=== PATIENT | female | born 1975 | race African-American/Black ===

== ENCOUNTER 2017-10-23 12:13 | Emergency (ER) | payer SELFPAY ==
[~2017-10-23] VITALS: Ht 162.6 cm; Wt 61.2 kg
[2017-10-23] MEDS ORDERED: TETRACAINE 0.5% OPHTH SOLUTION 4ML BOTTLE. OD ONE (13:00)
[2017-10-23] MEDS ORDERED: FLUORESCEIN 1MG EYE STRIP. OD ONE (13:00)
--- NOTE | 2017-10-23 13:00 | PHYS DOC ---
Past History Past Medical History: No Pertinent History Past Surgical History: No Surgical History Alcohol Use: Occasionally Drug Use: None Adult General Chief Complaint Chief Complaint: EYE PROBLEMS HPI HPI 42-year-old female presents with right eye pain and redness. The patient states that about 2 hours before she came in, she had sudden onset of discomfort in the right eye. She thought she might have something in there, but it has not improved despite significant tearing. She was not doing anything except sitting on the couch at the time. She wasn't working with any materials or cleaning. When she woke up this morning, her eye appeared normal. It is quite erythematous with yellowish discharge at this time. She denies any other symptoms or concerns. Review of Systems Review of Systems Constitutional: Denies fever or chills [] Eyes: right eye pain, redness[] HENT: Denies nasal congestion or sore throat [] Respiratory: Denies cough or shortness of breath [] Cardiovascular: No additional information not addressed in HPI [] GI: Denies abdominal pain, nausea, vomiting, bloody stools or diarrhea [] : Denies dysuria or hematuria [] Musculoskeletal: Denies back pain or joint pain [] Integument: Denies rash or skin lesions [] Neurologic: Denies headache, focal weakness or sensory changes [] Endocrine: Denies polyuria or polydipsia [] All other systems were reviewed and found to be within normal limits, except as documented in this note. Current Medications Current Medications Current Medications Medications (Trade) Dose Ordered Sig/[facility] Start Time Stop Time Status Last Admin Dose Admin Fluorescein Sodium (Ful-Noemy 1mg) 1 strip 1X ONCE 10/23/17 13:00 10/23/17 13:01 Tetracaine HCl (Tetracaine) 1 drop 1X ONCE 10/23/17 13:00 10/23/17 13:01 Allergies Allergies Allergies Coded Allergies Type Severity Reaction Last Updated Verified No Known Drug Allergies 10/23/17 No Physical Exam Physical Exam Constitutional: Well developed, well nourished, no acute distress, non-toxic appearance. [] HENT: Normocephalic, atraumatic, bilateral external ears normal, oropharynx moist, no oral exudates, nose normal. [] Eyes: PERRLA, EOMI. Right eye conjunctiva erythematous, purulent discharge on the same side. Left eye normal. Dilation with fluorescein and Wood's lamp did not reveal a corneal abrasion or unusual uptake.[] Neck: Normal range of motion, no tenderness, supple, no stridor. [] Cardiovascular:Heart rate regular rhythm, no murmur [] Lungs & Thorax: Bilateral breath sounds clear to auscultation [] Abdomen: Bowel sounds normal, soft, no tenderness, no masses, no pulsatile masses. [] Skin: Warm, dry, no erythema, no rash. [] Back: No tenderness, no CVA tenderness. [] Extremities: No tenderness, no cyanosis, no clubbing, ROM intact, no edema. [] Neurologic: Alert and oriented X 3, normal motor function, normal sensory function, no focal deficits noted. [] Psychologic: Affect normal, judgement normal, mood normal. [] Current Patient Data Vital Signs Vital Signs Date Time Temp Pulse Resp B/P (MAP) Pulse Ox O2 Delivery O2 Flow Rate FiO2 10/23/17 12:25 98.8 58 16 99 Room Air EKG EKG [] Radiology/Procedures Radiology/Procedures [] Course & Med Decision Making Course & Med Decision Making Pertinent Labs and Imaging studies reviewed. (See chart for details) I do not see a corneal abrasion or foreign body. Given the erythema and what appears to be purulent drainage, I will cover the patient with with Erythromycin ointment. [] Dragon Disclaimer Dragon Disclaimer This electronic medical record was generated, in whole or in part, using a voice recognition dictation system. Departure Departure: Referrals: PCP,NO (PCP) LUIS HIGUERA DO Oct 23, 2017 13:00
[2017-10-23] MEDS ORDERED: ERYT1OIN6 OP (13:03)
[2017-10-23 13:25] VITALS: BP 163/107
== END 2017-10-23 13:05 | disposition home or self-care (01) ==
LOC: ER 12:13
DX: H57.11 Ocular pain, right eye (principal); H57.8 Other specified disorders of eye and adnexa
CPT/HCPCS: 99283

== ENCOUNTER 2018-11-15 12:34 | Emergency (ER) | payer SELFPAY ==
[~2018-11-15] VITALS: Ht 162.6 cm; Wt 69.9 kg
[~2018-11-15 12:34] MED LIST: ERYT1OIN6 OP
[2018-11-15 12:53] VITALS: BP 163/96
[2018-11-15] MEDS ORDERED: IV NORMAL SALINE 1,000ML 1,000 ML IV ONE (13:15)
--- NOTE | 2018-11-15 13:26 | PHYS DOC ---
Past History Past Medical History: Hypertension, Pancreatitis Past Surgical History: Appendectomy Alcohol Use: Heavy Drug Use: None Adult General Chief Complaint Chief Complaint: ABDOMINAL PAIN HPI HPI 43-year-old female presents with epigastric pain for the last 4 days. The patient drinks "too much alcohol" 4 days ago because she was feeling overly stressed from her job. The patient is a daily drinker, drinking at least 2-3 units every day. She presents today because the epigastric pain is not feeding. She has had pancreatitis multiple times. Her most recent was about 3 years ago, when she decreased the amount of drinking. Patient denies fever or chills. She has had nausea but no vomiting. Review of Systems Review of Systems Constitutional: Denies fever or chills [] Eyes: Denies change in visual acuity, redness, or eye pain [] HENT: Denies nasal congestion or sore throat [] Respiratory: Denies cough or shortness of breath [] Cardiovascular: No additional information not addressed in HPI [] GI: Epigastric abdominal pain, nausea. Denies vomiting, bloody stools or diarrhea [] : Denies dysuria or hematuria [] Musculoskeletal: Denies back pain or joint pain [] Integument: Denies rash or skin lesions [] Neurologic: Denies headache, focal weakness or sensory changes [] Endocrine: Denies polyuria or polydipsia [] All other systems were reviewed and found to be within normal limits, except as documented in this note. Current Medications Current Medications Current Medications Medications (Trade) Dose Ordered Sig/Johann Start Time Stop Time Status Last Admin Dose Admin Sodium Chloride 1,000 ml @ 1,000 mls/hr 1X ONCE 11/15/18 13:15 11/15/18 14:14 Allergies Allergies Allergies Coded Allergies Type Severity Reaction Last Updated Verified No Known Drug Allergies 10/23/17 No Physical Exam Physical Exam Constitutional: Well developed, well nourished, no acute distress, non-toxic appearance. [] HENT: Normocephalic, atraumatic, bilateral external ears normal, oropharynx moist, no oral exudates, nose normal. [] Eyes: PERRLA, EOMI, conjunctiva normal, no discharge. [] Neck: Normal range of motion, no tenderness, supple, no stridor. [] Cardiovascular:Heart rate regular rhythm, no murmur [] Lungs & Thorax: Bilateral breath sounds clear to auscultation [] Abdomen: Bowel sounds normal, soft, moderate epigastric tenderness, no masses, no pulsatile masses. [] Skin: Warm, dry, no erythema, no rash. [] Back: No tenderness, no CVA tenderness. [] Extremities: No tenderness, no cyanosis, no clubbing, ROM intact, no edema. [] Neurologic: Alert and oriented X 3, normal motor function, normal sensory function, no focal deficits noted. [] Psychologic: Affect normal, judgement normal, mood anxious. [] Current Patient Data Vital Signs Vital Signs Date Time Temp Pulse Resp B/P (MAP) Pulse Ox O2 Delivery O2 Flow Rate FiO2 11/15/18 12:53 98.6 76 19 100 Room Air EKG EKG [] Radiology/Procedures Radiology/Procedures [] Course & Med Decision Making Course & Med Decision Making Pertinent Labs and Imaging studies reviewed. (See chart for details) The patient's labs are unremarkable. She does not appear to have pancreatitis. We tried a GI cocktail which improved the patient's pain by about 50%. This makes me suspicious for GERD. We'll treat her with 20 of Pepcid and 40 of Protonix in the ED. I also discharge her on a 14 day prescription for Protonix to see if this improves her symptoms. She is stable for discharge at this time. [] Dragon Disclaimer Dragon Disclaimer This electronic medical record was generated, in whole or in part, using a voice recognition dictation system. Departure Departure: Impression: Primary Impression: GERD (gastroesophageal reflux disease) Additional Impression: Epigastric abdominal pain Disposition: 01 HOME, SELF-CARE Condition: STABLE Referrals: PCP,NO (PCP) Patient Instructions: Gastroesophageal Reflux Disease, Adult, [id number] Scripts Pantoprazole Sodium (PROTONIX) 40 Mg Tablet. 1 TAB PO DAILY for GERD for 14 Days, #14 TAB 0 Refills Prov: LUIS HIGUERA DO 11/15/18 Problem Qualifiers Primary Impression: GERD (gastroesophageal reflux disease) Esophagitis presence: without esophagitis Qualified Codes: K21.9 - Gastro- esophageal reflux disease without esophagitis LUIS HIGUERA DO Nov 15, 2018 13:26
[2018-11-15 14:00] LABS: ALBUMIN 4.2 g/dL (3.4-5.0); CALCIUM 10.1 mg/dL (8.5-10.1); CREATININE 0.7 mg/dL (0.6-1.0); POTASSIUM 4.5 mmol/L (3.5-5.1); TOTAL BILIRUBIN 0.6 mg/dL (0.2-1.0); TOTAL PROTEIN 8.6 g/dL (6.4-8.2)
[2018-11-15 14:01] LABS: BASO % 1 % (0-3); EOS # 0.1 x10^3/uL (0.0-0.7); EOS % 1 % (0-3); HEMOGLOBIN 15.1 g/dL (12.0-15.5); LYMPH # 2.3 x10^3/uL (1.0-4.8); LYMPH % 26 % (24-48); MEAN CORPUSCULAR HEMOGLOBIN 32 pg (25-35); MEAN CORPUSCULAR HGB CONC 34 g/dL (31-37); MEAN CORPUSCULAR VOLUME 95 fL (79-100); MONO # 0.7 x10^3/uL (0.0-1.1); MONO % 8 % (0-9); NEUT # 5.6 x10^3uL (1.8-7.7); NEUT % 64 % (31-73); PLATELET COUNT 263 x10^3/uL (140-400); RED BLOOD COUNT 4.76 x10^6/uL (3.50-5.40); RED CELL DISTRIBUTION WIDTH 14.3 % (11.5-14.5); WHITE BLOOD COUNT 8.7 x10^3/uL (4.0-11.0)
[2018-11-15] MEDS ORDERED: LIDO:MAALOX 1:1 20 ML SINGLE DOSE. PO ONE (14:30)
[2018-11-15] MEDS ORDERED: PANT40TA3 PO (15:00)
[2018-11-15] MEDS ORDERED: FAMOTIDINE 20 MG/2 ML VIAL IVP ONE (15:00)
[2018-11-15] MEDS ORDERED: PANTOPRAZOLE IV 40 MG VIAL. IVP ONE (15:00)
== END 2018-11-15 15:21 | disposition home or self-care (01) ==
LOC: ER 12:34
DX: K21.9 Gastro-esophageal reflux disease without esophagitis (principal); I10 Essential (primary) hypertension; F10.20 Alcohol dependence, uncomplicated; Z90.89 Acquired absence of other organs
CPT/HCPCS: 36415; 80053; 83690; 85025; 96374; 96375; 99284; C9113; J3490; J7030

== ENCOUNTER 2021-02-05 11:49 | Inpatient (IN) | payer SELFPAY ==
[~2021-02-05] VITALS: Ht 162.6 cm; Wt 64.2 kg
[~2021-02-05 11:49] MED LIST changes: +PANT40TA3 PO
[2021-02-05] MEDS ORDERED: IV NORMAL SALINE 1,000ML 1,000 ML IV ONE ×2 (12:15→14:15)
[2021-02-05] MEDS ORDERED: MORPHINE SULFATE 4 MG/ML DISP.SYRIN. IV ONE ×2 (12:15→13:00)
[2021-02-05] MEDS ORDERED: ONDANSETRON PF 4 MG/2 ML VIAL. IVP ONE (12:15)
--- NOTE | 2021-02-05 12:23 | PHYS DOC ---
Past History Past Medical History: Hypertension, Pancreatitis Past Surgical History: Appendectomy Alcohol Use: Sober Additional Alcohol Information: 1/2 beer daily Drug Use: None General Adult EDM: Chief Complaint: ABDOMINAL PAIN HPI: HPI: Patient is a 39 year old female with past medical history of alcoholism and pancreatitis who presents with upper abdominal pain radiating to the back. Started at 3 AM. Sharp. Has had poor appetite and persistent nausea/vomiting. Feels similar to previous pancreatitis episodes. Last episode of pancreatitis was 5 years ago per patient report. At that time she was drinking heavily with large amounts of alexei daily. She states currently has only been drinking half a beer per day. She denies any recent uptake in alcohol use. Denies other drug use. Denies other medical problems. Denies history of surgical interventions. She denies history of gallstones. Not currently on medications. She has vomited several times this morning. No blood or black material in the vomit. She has had some diarrhea this morning as well. No blood or melena. Review of Systems: Review of Systems: Constitutional: Denies fever. Reports chills Eyes: Denies change in visual acuity HENT: Denies nasal congestion or sore throat Respiratory: Denies cough or shortness of breath Cardiovascular: Denies chest pain or edema GI: Reports abdominal pain, loss of appetite, nausea/vomiting, and diarrhea. : Denies dysuria Musculoskeletal: Denies back pain or joint pain Integument: Denies rash Neurologic: Denies headache, focal weakness or sensory changes Endocrine: Denies polyuria or polydipsia Lymphatic: Denies swollen glands Psychiatric: Denies depression or anxiety Allergies: Allergies: Allergies Coded Allergies Type Severity Reaction Last Updated Verified No Known Drug Allergies 02/05/21 No Physical Exam: PE: Constitutional: Appears acutely uncomfortable. Tearful. Clutching abdomen. Laying in right lateral recumbent position. [] HENT: Normocephalic, atraumatic, Eyes: Tearful, conjunctiva normal. [] Cardiovascular:Heart rate regular rhythm, no murmur [] Lungs & Thorax: Bilateral breath sounds clear to auscultation [] Abdomen: Diffuse abdominal tenderness worse in the epigastrium. Guarding present. [] Skin: Warm, dry, no erythema, no rash. [] Back: No tenderness, no CVA tenderness. [] Extremities: No tenderness, no cyanosis, no clubbing, ROM intact, no edema. [] Neurologic: Alert and oriented X 3, normal motor function, normal sensory function, no focal deficits noted. [] Psychologic: Affect normal, judgement normal, mood normal. [] Current Patient Data: Vital Signs: Vital Signs Date Time Temp Pulse Resp B/P (MAP) Pulse Ox O2 Delivery O2 Flow Rate FiO2 02/05/21 12:01 98.6 96 31 183/84 (117) 99 Room Air EKG: EKG: [] Radiology/Procedures: Radiology/Procedures: [] Impressions: [address] [address] IMAGING REPORT Signed PATIENT: BRYNN BROWN MACCOUNT: [id number] : 1975 LOCATION: ER AGE: 45 SEX: F EXAM STATUS: PRE ER ORD. PHYSICIAN: RUFUS HART MD REASON: epigastric pain radiating to back -75mls omni 300 PROCEDURE: CT ABD PELV W/ IV CONTRST ONLY CT ABDOMEN+PELVIS W History: epigastric pain radiating to back Comparison: None. Technique: After administration of intravenous contrast, helical CT of the abdomen and pelvis was performed from the lung bases through the ischial tuberosities. Coronal and sagittal reconstructions were obtained. 75 mL of Omnipaque 300 were used. One or more of the following dose reduction techniques were utilized: Automated exposure control (AEC), Adjustment of mA and/or kV according to patient size, Use of iterative reconstruction technique such as ASiR, CT scan done according to ALARA and image gently/image wisely Abdomen Findings: The visualized lung bases are clear. Mild haziness around the uncinate process of pancreas with some nonspecific free fluid in the right upper quadrant abdomen. Diffuse hepatic steatosis. Gall bladder, spleen, and bilateral adrenal glands are normal. Symmetric renal enhancement. Left pelvic kidney. There is no hydronephrosis. The visualized loops of small bowel are normal. The visualized loops of large bowel are normal. There is no evidence of bowel obstruction. Appendix is normal. There is no free fluid. There is no mesenteric or retroperitoneal adenopathy. The abdominal aorta is normal in caliber. Pelvis Findings: Urinary bladder is decompressed. Enlarged myomatous and retrocaval uterus No pelvic free fluid. There is no pelvic or inguinal adenopathy. There is no acute bony abnormality. IMPRESSION: 1. Mild haziness around the uncinate process of pancreas with some nonspecific free fluid in the right upper quadrant abdomen, which may represent p ancreatitis. Correlate with laboratory values. 2. Diffuse hepatic steatosis. 3. Enlarged myomatous uterus. Electronically signed by: Emiliano Funk MD (02/05/2021 1:26 PM) [facility] DICTATED AND SIGNED BY: EMILIANO FUNK MD DATE: 02/05/21 9416 CC: RUFUS HART MD; PCP,NO ~MTH0 0 Heart Score: C/O Chest Pain: No Risk Factors: Risk Factors: DM, Current or recent (<one month) smoker, HTN, HLP, family history of CAD, obesity. Risk Scores: Score 0 - 3: 2.5% MACE over next 6 weeks - Discharge Home Score 4 - 6: 20.3% MACE over next 6 weeks - Admit for Clinical Observation Score 7 - 10: 72.7% MACE over next 6 weeks - Early Invasive Strategies Course & Med Decision Making: Course & Med Decision Making Pertinent Labs and Imaging studies reviewed. (See chart for details) Patient 45-year-old female with history of alcoholism and previous episodes of pancreatitis who presents with epigastric pain radiating to the back associated with nausea/vomiting. History and exam consistent with pancreatitis. She denies any recent large alcohol use, but continues to drink "1/2 a beer a day. " We will check labs including CBC, CMP, lipase. We will provide with analgesia, antiemetics, and IV fluids. Most likely alcohol related, but since we do not have surgical capability. Will obtain CT imaging to exclude gallstones or complications of pancreatitis that may require surgical intervention. 1222 Lipase 350. LFTs otherwise normal. Cell counts normal. CT shows inflammation of the pancreas consistent with pancr eatitis. She does meet Pancreatitis diagnostic criteria with characteristic pain and CT evidence of acute pancreatitis. She has been unable to tolerate p.o. and has required multiple doses of pain medication in the ED. Feel she will require admission for pain control and IV hydration. 134[address] Alexander Disclaimer: Alexander Disclaimer: This electronic medical record was generated, in whole or in part, using a voice recognition dictation system. Departure Departure: Impression: Primary Impression: Pancreatitis Disposition: HOME / SELF CARE / HOMELESS Admitting Physician: Donaldo Keane Condition: STABLE Referrals: PCPANDRZEJ (PCP) RUFUS HART MD Feb 05, 2021 12:23
[2021-02-05] MEDS ORDERED: CONTRAST GIVEN. MC PRN (12:30)
[2021-02-05] MEDS ORDERED: IOHEXOL 300 MG/ML 75 ML VIAL. IV ONE (12:30)
[2021-02-05 12:52] LABS: BASO # 0.1 x10^3/uL (0.0-0.2); BASO % 1 % (0-3); EOS % 0 % (0-3); HEMATOCRIT 40.5 % (36.0-47.0); HEMOGLOBIN 13.7 g/dL (12.0-15.5); LYMPH # 1.8 x10^3/uL (1.0-4.8); LYMPH % 18 % (24-48); MEAN CORPUSCULAR HEMOGLOBIN 34 pg (25-35); MEAN CORPUSCULAR HGB CONC 34 g/dL (31-37); MEAN CORPUSCULAR VOLUME 99 fL (79-100); MONO # 0.5 x10^3/uL (0.0-1.1); MONO % 6 % (0-9); NEUT # 7.4 x10^3uL (1.8-7.7); NEUT % 75 % (31-73); PLATELET COUNT 291 x10^3/uL (140-400); RED BLOOD COUNT 4.09 x10^6/uL (3.50-5.40); RED CELL DISTRIBUTION WIDTH 14.2 % (11.5-14.5); WHITE BLOOD COUNT 9.9 x10^3/uL (4.0-11.0)
[2021-02-05 12:58] LABS: CALCIUM 9.2 mg/dL (8.5-10.1); CREATININE 0.6 mg/dL (0.6-1.0); GFR 130.2; POTASSIUM 4.4 mmol/L (3.5-5.1)
[2021-02-05 13:04] LABS: ALBUMIN 3.9 g/dL (3.4-5.0); ALBUMIN/GLOBULIN RATIO 1.2 (1.0-1.7); TOTAL BILIRUBIN 0.5 mg/dL (0.2-1.0); TOTAL PROTEIN 7.2 g/dL (6.4-8.2)
--- NOTE | 2021-02-05 13:29 | RAD ---
CT ABDOMEN+PELVIS W History: epigastric pain radiating to back Comparison: None. Technique: After administration of intravenous contrast, helical CT of the abdomen and pelvis was per formed from the lung bases through the ischial tuberosities. Coronal and sagittal reconstructions wer e obtained. 75 mL of Omnipaque 300 were used. One or more of the following dose reduction techniques were utilized: Automated exposure control (AEC), Adjustment of mA and/or kV according to patient size , Use of iterative reconstruction technique such as ASiR, CT scan done according to ALARA and image g ently/image wisely Abdomen Findings: The visualized lung bases are clear. Mild haziness around the uncinate process of pancreas with some nonspecific free fluid in the right u pper quadrant abdomen. Diffuse hepatic steatosis. Gall bladder, spleen, and bilateral adrenal glands are normal. Symmetric renal enhancement. Left pelvic kidney. There is no hydronephrosis. The visualized loops of small bowel are normal. The visualized loops of large bowel are normal. There is no evidence of bowel obstruction. Appendix is normal. There is no free fluid. There is no mesenteric or retroperitoneal adenopathy. The abdominal aorta is normal in caliber. Pelvis Findings: Urinary bladder is decompressed. Enlarged myomatous and retrocaval uterus No pelvic free fluid. There is no pelvic or inguinal adenopathy. There is no acute bony abnormality. IMPRESSION: 1. Mild haziness around the uncinate process of pancreas with some nonspecific free fluid in the righ t upper quadrant abdomen, which may represent pancreatitis. Correlate with laboratory values. 2. Diffuse hepatic steatosis. 3. Enlarged myomatous uterus. Electronically signed by: Don Funk MD (02/05/2021 1:26 PM) [facility]
[2021-02-05] MEDS ORDERED: MORPHINE SULFATE 2 MG/ML DISP.SYRIN. IV ONE (14:00)
[2021-02-05 14:03] LABS: U PREG PATIENT NEGATIVE (NEG)
[2021-02-05 14:12] LABS: BILIRUBIN,URINE NEG (NEG); CLARITY,URINE CLEAR; COLOR,URINE YELLOW; GLUCOSE,URINE NEG (NEG)
[2021-02-05 14:13] LABS: BACTERIA,URINE 0 /HPF (0-FEW); NITRITE,URINE NEG (NEG); RBC,URINE 0 /HPF (0-2); SQUAMOUS EPITHELIAL CELL,UR FEW /LPF; UROBILINOGEN,URINE 0.2 mg/dL (0.2 mg/dL); WBC,URINE OCC /HPF (0-4)
[2021-02-05] MEDS ORDERED: ONDANSETRON PF 4 MG/2 ML VIAL. IVP PRN ×2 (14:15→19:15)
[2021-02-05] MEDS ORDERED: MORPHINE SULFATE 4 MG/ML DISP.SYRIN. IVP PRN (14:15)
--- NOTE | 2021-02-05 15:23 | HP ---
ADMIT DATE: 02/05/2021 ATTENDING PHYSICIAN: Dr. Keane. CHIEF COMPLAINT: Abdominal pain and nausea. HISTORY OF PRESENT ILLNESS: The patient is a 45-year-old white female with abdominal pain and nausea. She has chronic alcoholism and continues to drink unfortunately, she downplays how much she is drinking, but she is still actively drinking. Symptoms started at 3:00 a.m. this morning, sharp midepigastric abdominal pain with persistent nausea and dry heaves. She had a previous episode several years ago. At that time, she was drinking heavily with large amounts of alexei daily. She says she has cut back. PAST MEDICAL HISTORY: Significant for hypertension. She has been noncompliant, does not see a doctor. She also has a previous appendectomy. ALLERGIES: She has no known drug allergies. SOCIAL HISTORY: She is a nonsmoker. She is still continuing to drink. FAMILY HISTORY: Noncontributory. REVIEW OF SYSTEMS: Unremarkable for any COVID exposure, hematemesis or cirrhosis. All other systems reviewed and turned to be negative. PHYSICAL EXAMINATION: GENERAL: When I saw her, this is a pleasant lady who appears older than her stated age. INITIAL VITAL SIGNS: Showed a blood pressure of 162/100, pulse is 80 and regular, she was afebrile, oxygen saturation 97% on room air. HEENT: Head is without trauma. Pupils are reactive. Sclerae nonicteric. The oropharynx is clear. NECK: Supple, no bruits. LUNGS: Shallow respirations. CARDIOVASCULAR SYSTEM: Showed regular heart tones. No gallops. ABDOMEN: Diffusely tender on palpation. There is guarding. There was no rebound tenderness. Bowel sounds were hypoactive. EXTREMITIES: Showed no cyanosis or edema. NEUROLOGIC: Focally intact. Speech is fluent. Affect is flat. PERTINENT LABORATORY STUDIES: Her hemoglobin was 13.7 g/dL with a white count of 9900. Electrolytes within normal range. ALT and AST slightly elevated. Bilirubin is normal. The lipase is only 350. IMAGING STUDIES: CT of the abdomen showed evidence of haziness surrounding the uncinate process of the pancreas with nonspecific free fluid representing pancreatitis. There is diffuse hepatic steatosis and an enlarged myomatous uterus. ASSESSMENT: 1. A 45-year-old female with alcoholic pancreatitis. 2. Associated nausea, vomiting and abdominal pain. 3. Probable underlying depression. 4. Essential hypertension. 5. Noncompliance. PLAN: 1. Admit to the inpatient unit. 2. Telemetry monitoring. 3. N.p.o. strict. 4. Pain and nausea control. 5. Gentle IV hydration. ARYAN/JB DR: ARYAN/vernon TID: [id number]
[2021-02-05 18:45] VITALS: BP 120/76
[2021-02-05 18:50] VITALS: BP 195/87
[2021-02-05] MEDS: METOCLOPRAMIDE HCL 10 MG/2 ML VIAL. IVP PRN (19:59)
[2021-02-05] MEDS ORDERED: cloNIDine TTS-3 1 PATCH PATCH TD SCH (20:00)
[2021-02-05] MEDS: HYDROmorphone PF 1 MG/ML DISP.SYRIN IVP PRN ×3 (20:03→22:25)
[2021-02-05] MEDS: IV NORMAL SALINE 1,000ML 1,000 ML IV SCH (20:04)
[2021-02-05 22:33] VITALS: BP 162/88
[2021-02-05 23:38] VITALS: BP 159/90
[2021-02-06] MEDS: HYDROmorphone PF 1 MG/ML DISP.SYRIN IVP PRN ×5 (00:50→11:05)
[2021-02-06] MEDS: IV NORMAL SALINE 1,000ML 1,000 ML IV SCH ×3 (02:21→22:06)
[2021-02-06 05:12] VITALS: BP 156/71
--- NOTE | 2021-02-06 05:51 | NUR ---
Pt has not slept much this past night. She requests pain medication every one and a half hours for abdominal and lower back pain. She has been a little dizzy when rising to ambulate to the toilet. Pt requires standby assistance for safety and calls the nurse each time she needs to toilet. Will continue to monitor.
[2021-02-06 11:03] VITALS: BP 165/84
[2021-02-06 13:49] LABS: CREATININE 0.5 mg/dL (0.6-1.0); GFR 160.7; POTASSIUM 3.6 mmol/L (3.5-5.1)
[2021-02-06 13:55] LABS: TOTAL BILIRUBIN 0.6 mg/dL (0.2-1.0)
[2021-02-06] MEDS: HYDROmorphone PF 2 MG/ML VIAL IV PRN ×3 (14:45→22:01)
[2021-02-06 15:07] VITALS: BP 184/94
--- NOTE | 2021-02-06 16:46 | NUR ---
PT STILL NPO, BUT CAN NOW HAVE ICE CHIPS. PT VERY TEARFUL AND UPSET MOST OF THE DAY. PT UNDERSTAND THE NEED TO STOP DRINKING. PT SOILED HER UNDERWEAR TODAY AND WAS GIVEN A BRIEF TO CHANGE INTO. PT STILL HAS NORMAL SALINE RUNNING AT 100ML/HR. PT STILL IN A LOT OF PAIN SO DR. OG GAVE HER 2MG DILAUDID Q 3 HOURS. PT STILL RATES PAIN AT A HIGH NUMBER DESPITE RECEIVING DILAUDID REGULARLY THROUGH THE DAY. PT ASKED FOR HELP TO THE BATHROOM ONCE. 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
[2021-02-06 20:09] VITALS: BP 181/98
--- NOTE | 2021-02-06 20:41 | PN ---
DATE: 02/06/2021 SUBJECTIVE: The patient is a 45-year-old -[place] female patient who was admitted yet again with another episode of acute pancreatitis. She presented with abdominal pain that she continued to complain of and rated today as 8/10 in severity. She is known to drink alcohol and continues to drink, although she claims that she drinks only half a can of beer every day. She is known to have hypertension; however, she has not been taking any medication for that. PHYSICAL EXAMINATION: GENERAL: When I saw her today, she was resting slightly propped up in bed, in no apparent respiratory distress. There was no pallor, jaundice, or cyanosis. No lymphadenopathy or thyromegaly. No jugular venous distention. No lower limb edema. VITAL SIGNS: Her heart rate was 52, blood pressure is 165/84, temperature was 98.3, respiratory rate 23, and oxygen saturation was 98%. HEAD, EYES, EARS, NOSE, AND THROAT: Normocephalic, atraumatic. NECK: Supple. HEART: Showed normal first and second heart sounds. No gallop, rub or murmur. CHEST: Clear to auscultation. No crepitation or rhonchi. ABDOMEN: Distended, soft with tenderness mostly in the epigastric area. No guarding or rigidity. No organomegaly. All hernial orifice intact. Bowel sounds normal. NEUROLOGIC: She was grossly intact. Her intake and output are incompletely recorded. LABORATORY DATA: Still pending at the time of this dictation. Apparently, the CT scan of the abdomen showed mild haziness around uncinate process of the pancreas with some nonspecific free fluid in the right upper quadrant. There is diffuse hepatic steatosis. The gallbladder, spleen and bilateral adrenal glands are normal, symmetrical renal enhancement left pelvic kidney. There is no hydronephrosis. ASSESSMENT: 1. Acute pancreatitis, likely alcohol-induced. 2. Hypertension. PLAN: My plan is to continue with n.p.o. status. Continue with IV fluids and pain management, antiemetic. I will repeat her labs and perhaps increase her hydromorphone to 2 mg every 3 hours. SHANE/TATI DR: Sabrina TID: [id number]
[2021-02-06 23:47] VITALS: BP 167/89
[2021-02-07] MEDS: HYDROmorphone PF 2 MG/ML VIAL IV PRN ×4 (03:40→19:26)
[2021-02-07 05:54] VITALS: BP 175/92
[2021-02-07] MEDS: IV NORMAL SALINE 1,000ML 1,000 ML IV SCH (07:25)
[2021-02-07 07:40] LABS: ALBUMIN/GLOBULIN RATIO 0.9 (1.0-1.7); CREATININE 0.5 mg/dL (0.6-1.0); GFR 160.7; POTASSIUM 3.6 mmol/L (3.5-5.1); TOTAL BILIRUBIN 0.5 mg/dL (0.2-1.0); TOTAL PROTEIN 6.2 g/dL (6.4-8.2)
--- NOTE | 2021-02-07 08:12 | PN ---
DATE: 02/07/2021 ATTENDING PHYSICIAN: Dr. Keane. SUBJECTIVE: Pain is better controlled, less nauseated. She is a bit hungry and would like to try some liquids. OBJECTIVE FINDINGS: VITAL SIGNS: Blood pressure this morning is 167/69, her pulse was 64 and regular, her oxygen saturation 92% on room air. HEENT: Head is without trauma. Pupils are reactive. Sclerae nonicteric. The oropharynx is clear. NECK: Supple, no bruits identified. LUNGS: Otherwise clear. CARDIOVASCULAR: Regular heart tones. No gallops. ABDOMEN: Soft. EXTREMITIES: Without edema. NEUROLOGIC FINDINGS: Focally intact. Affect is flat. LABORATORY DATA: Blood work this morning showed normal electrolytes. The lipase is 281. The nonfasting blood sugar is 61. Serology negative for coronavirus. ASSESSMENT: 1. A 45-year-old female with acute pancreatitis. 2. Alcoholic pancreatitis. 3. Hypertension. 4. Noncompliance. 5. Chronic alcoholism. PLAN: 1. Discontinue IV fluids. 2. Monitor blood pressure. I did start a clonidine patch on Monday. 3. Advance diet to clear liquids. 4. Continue pain and nausea control. RONDA DR: ARYAN/vernon TID: [id number]
[2021-02-07 11:30] VITALS: BP 178/93
--- NOTE | 2021-02-07 12:17 | NUR ---
DR. CHANDLER NOTIFIED THAT PT BLOOD PRESSURE HAS BEEN ELEVATED. IV FLUIDS D/C'D. DR. CHANDLER WANTS TO WAIT UNTIL TOMORROW TO SEE IF HER BP IMPROVES WITHOUT THE FLUIDS. HE IS AWARE SHE IS ON A CLONIDINE PATCH.
[2021-02-07 15:36] VITALS: BP 199/114
[2021-02-07] MEDS ORDERED: ATENOLOL 50 MG TABLET PO STA (15:38)
--- NOTE | 2021-02-07 16:28 | NUR ---
DR. CHANDLER ORDERED ATENOLOL 50MG NOW DOSE AND BID. PT REQUESTED PAIN MEDS ONCE THIS MORNING AND ONCE IN THE AFTERNOON. PT CAN HAVE A CLEAR LIQUID DIET. PT NO LONGER ON IV FLUIDS.
[2021-02-07] MEDS: ATENOLOL 50 MG TABLET PO SCH (19:26)
[2021-02-07 20:37] VITALS: BP 181/95
[2021-02-07 23:58] VITALS: BP 170/99
[2021-02-08] MEDS: HYDROmorphone PF 2 MG/ML VIAL IV PRN ×4 (00:02→12:43)
[2021-02-08 06:28] VITALS: BP 176/103
[2021-02-08] MEDS: ATENOLOL 50 MG TABLET PO SCH ×2 (09:09→19:51)
[2021-02-08 11:34] VITALS: BP 171/93
[2021-02-08] MEDS: METOCLOPRAMIDE HCL 10 MG/2 ML VIAL. IVP PRN ×2 (12:42→19:50)
--- NOTE | 2021-02-08 13:30 | PN ---
DATE: 02/08/2021 ATTENDING PHYSICIAN: Dr. Keane. SUBJECTIVE: Pain is better controlled, less nauseated. Tolerating clear liquids. OBJECTIVE FINDINGS: VITAL SIGNS: Blood pressure this morning is still a bit high, 176/103, pulse is 51 and regular. She is afebrile. Oxygen saturation 95% on room air. HEENT: Head is without trauma. Pupils are reactive. Sclerae nonicteric. The oropharynx is clear. NECK: Supple, no bruits. LUNGS: Clear. CARDIOVASCULAR: Regular heart tones. ABDOMEN: Soft. There is minimal guarding. There is no rebound tenderness. Bowel sounds are hypoactive. EXTREMITIES: Show trace edema. NEUROLOGIC FINDING: Focally intact. Speech is fluent. Affect remains flat. ASSESSMENT: 1. A 45-year-old female with acute alcoholic pancreatitis. 2. Chronic alcoholism. 3. Hypertension. 4. Noncompliance. 5. Underlying depression with anxiety. PLAN: 1. IV fluids have been discontinued. 2. Advance diet to full liquids. 3. Monitor BP. 4. Tentative discharge plan for tomorrow. ARYAN/BRIANNE DR: ARYAN/vernon TID: [id number]
[2021-02-08 15:01] VITALS: BP 173/100
[2021-02-08 18:30] VITALS: BP 185/103
[2021-02-08 23:07] VITALS: BP 198/92
[2021-02-09 05:39] VITALS: BP 156/91
[2021-02-09 08:57] VITALS: BP 156/91
[2021-02-09] MEDS: ATENOLOL 50 MG TABLET PO SCH (08:57)
--- NOTE | 2021-02-09 11:30 | NUR ---
patient discharged at 1128 via ambulation accompanied by staff. pt given written and verbal instructions with verbal statement of understanding received.
--- NOTE | 2021-02-09 14:01 | DS ---
DATE OF DISCHARGE: 02/09/2021 ATTENDING PHYSICIAN: Dr. Keane. FINAL DISCHARGE DIAGNOSES: 1. Alcoholic pancreatitis. 2. Chronic alcoholism. 3. Hypertension. 4. Noncompliance. 5. Underlying depression with anxiety. HISTORY AND PHYSICAL: The patient is a 45-year-old female with underlying depression. She is an alcoholic. She continues to drink. She is admitted with nausea, vomiting and abdominal pain. PHYSICAL EXAMINATION: Please see the dictated note. PERTINENT LABORATORY AND X-RAY STUDIES: Admission hemoglobin was 13.7 g/dL, white count 9900. Electrolytes within normal range. Creatinine 0.8 mg/dL. Transaminases slightly elevated. Admission lipase was 539. CT of the abdomen demonstrated findings consistent with peripancreatic inflammation. COURSE IN THE HOSPITAL: The patient was admitted. She was initially kept n.p.o., given IV hydration, pain and nausea control. She did better each day and improved. She was started on clear liquids then full liquids and eventually regular diet. Blood pressure was elevated. We did start her on a clonidine patch as well as initiation of oral Tenormin. She did well. By the fifth hospital day, her vital signs were stable. Blood pressures improved. I wrote her a prescription for Tenormin 100 mg 1 p.o. daily. She will take Tylenol as needed for pain. I suggest a bland diet for the next 48 hours. She is going to try to get established at the [facility] for followup care. Strong encouragement to avoid further alcohol use; whether or not she will quit drinking remains to be seen. The patient was then discharged from our hospital in stable condition with explicit instructions and followup care. Total discharge time spent is [address]: Cody TID: [id number]
== END 2021-02-09 12:29 | disposition home or self-care (01) | DRG 440 ==
LOC: ER 11:49 → 1 SOUTH 14:01
PROVIDERS: ADMIT Hospitalist; ATTEND Hospitalist
DX: K85.20 Alcohol induced acute pancreatitis without necrosis or infection (principal); D25.9 Leiomyoma of uterus, unspecified; F10.20 Alcohol dependence, uncomplicated; F41.8 Other specified anxiety disorders; I10 Essential (primary) hypertension; K76.0 Fatty (change of) liver, not elsewhere classified; Z90.49 Acquired absence of other specified parts of digestive tract; Z91.19 Patient's noncompliance with other medical treatment and regimen; Z20.822 Contact with and (suspected) exposure to COVID-19
CPT/HCPCS: 36415; 74177; 80053; 81001; 81025; 83690; 85025; 87426; 96361; 96374; 96375; 99406; J1170; J2270; J2405; J2765; Q9967; U0003; 99285-25; J7030